=== PATIENT | male | born 1955 | race Caucasian/White ===

== ENCOUNTER 2019-01-24 05:58 | Inpatient (IN) ==
--- NOTE | 2019-01-10 08:49 | PAT Medication Instructions ---
Medication Instructions Date of Service January 10, 2019 Home Medications albuterol sulfate [ProAir HFA] 1 puff INHALATION Q6H PRN aspirin [Aspirin Low Dose] 81 mg PO QPM atorvastatin 20 mg PO PM carbamazepine 600 mg PO HS clonazepam 1 mg PO HS latanoprost [Xalatan] 1 drp OPHTHALMIC (EYE) PM meloxicam 15 mg PO QAM metformin 500 mg PO QDD metoprolol tartrate 50 mg PO BID metoprolol tartrate 100 mg PO QAM qvduqzea-tvx-irmgilb fumarate 1 tab PO QDD ASK your surgeon for instructions meloxicam 15 mg PO QAM DO NOT take the morning of surgery sxcewkya-iyq-oebapod fumarate 1 tab PO QDD Take morning of surgery With a small sip of water, OTHERWISE NOTHING TO EAT OR DRINK AFTER MIDNIGHT: albuterol sulfate [ProAir HFA] 1 puff INHALATION Q6H PRN (use if needed; please bring with you to hospital day of surgery if possible) metoprolol tartrate 100 mg PO QAM Take evening before surgery albuterol sulfate [ProAir HFA] 1 puff INHALATION Q6H PRN (if needed) aspirin [Aspirin Low Dose] 81 mg PO QPM atorvastatin 20 mg PO PM carbamazepine 600 mg PO HS clonazepam 1 mg PO HS latanoprost [Xalatan] 1 drp OPHTHALMIC (EYE) PM metformin 500 mg PO QDD metoprolol tartrate 50 mg PO BID llinqqvx-qkl-pqjnpti fumarate 1 tab PO QDD Other Notes If you have any questions please call us at [phone] or [phone] or [phone] or [phone]
--- NOTE | 2019-01-10 12:43 | Anesthesiology Consultation ---
Date of Service January 10, 2019 Assessment & Plan (1) Encounter for pre-operative examination: Hx CAD/stents x2, lost to cardiac followup; patient will have cardiac preop evaluation on 01/14 (ANA Clements); per clinical secretary note, ECHO/stress test being done 01/21/19. Awaiting reports/cardio optimization. Chart Review Chart Review: Patient seen in Pre Admission Testing Teaching & Discussion Pre-Anesthesia Teaching/Discussion Notes: Instructed NPO after midnight before surgery,except medications with 15 cc of water. Medication instructions provided according to the PAT guidelines. History Surgery Operation Date: 01/24/19 07:45 Proposed Procedures p L3-S1 Removal of Hardware, L1-L3 Decompression, T12-L4 Fusion, Spinal Cord Monitoring - Malik Griffin DO Height/Weight Height: 6 ft Weight: 98.3 kg Allergies Allergy/AdvReac Type Severity Reaction Status Date / Time ibuprofen Allergy Unknown Rash Verified 01/06/19 12:06 Medications Home Medications Medication Instructions Recorded Confirmed Last Taken albuterol sulfate [ProAir HFA] 1 puff INHALATION Q6H PRN 01/06/19 01/06/19 Unknown aspirin [Aspirin Low Dose] 81 mg PO QPM 01/06/19 01/06/19 Unknown atorvastatin 20 mg PO PM 01/06/19 01/06/19 Unknown carbamazepine 600 mg PO HS 01/06/19 01/06/19 Unknown clonazepam 1 mg PO HS 01/06/19 01/06/19 Unknown latanoprost [Xalatan] 1 drp OPHTHALMIC (EYE) PM 01/06/19 01/06/19 Unknown meloxicam 15 mg PO QAM 01/06/19 01/06/19 Unknown metformin 500 mg PO QDD 01/06/19 01/06/19 Unknown metoprolol tartrate 50 mg PO BID 01/06/19 01/06/19 Unknown metoprolol tartrate 100 mg PO QAM 01/06/19 01/06/19 Unknown qhlrhtcj-nmm-vzwrrpv fumarate 1 tab PO QDD 01/06/19 01/06/19 Unknown [Multi Vitamin] Past Medical History Medical History Borderline diabetes NIDDM CAD (coronary artery disease) 1994= STENTS X2 Chronic obstructive pulmonary disease STABLE Degenerative disc disease Glaucoma History of seizures NO SEIZURES X SEVERAL YEARS Hx of myocardial infarction 1994= STENTS X2 Hyperlipidemia Hypertension Spinal stenosis Exercise / Class Metabolic Activity II 4-5 Yardwork/Stairs/Walk up hill Past Surgical History Surgical History History of back surgery History of cardiac cath 1994= STENTS X2 Past Anesthesia History No Hx of Anesthesia Complications and No Family Hx of Anesthesia Complications History of PONV No Hx of PONV and Hx of Motion Sickness Social History Smoking Status: Current every day smoker tobacco type: cigars Smoking cigarettes per day: 5 Do You Dip or Chew Tobacco: No Hx Alcohol Use: No Hx Substance Use: No Review of Systems Patient reports LBP with hip/groin radiation. Patient denies chest pain, shortness of breath, cough, wheezing, palpitations. Physical Exam Vital Signs VITALS BP 163/74 P 57 TEMP 98.0 SP02 95%RA RESP 18 PHYSICAL Full neck and c-spine range of motion. Full TMJ range of motion. TMD 4 finger breaths Mallampati Score 2 Dentition: edentulous Lungs: clear throughout to auscultation Cardiac: regular rate and rhythm, no murmurs noted Spine: normal Carotid arteries: negative bruit Extremities: no edema Testing Electrocardiogram Date: 01/10/19 Findings: + SB @ (56) Chest X-Ray Date: 01/10/19 Findings: + NAD Stress Test Date: 09/03/12 Type: DSE Negative for ischemia at 66%MPHR. Nondiagnostic stress ECHO/EKG given not able to attain 85% MPHR. No symptoms. No ectopy. EF 60%. Mild RAD. No significant valvular disease. Laboratory Results 01/10/19 13:13 PT 10.6 Seconds (9.0-12.0) 01/10/19 13:13 INR 1.0 (0.9-1.1) 01/10/19 13:13 APTT 28.8 Seconds (21.0-31.0) 01/10/19 13:13 Yellow 01/10/19 Unknown Clear (Clear) 01/10/19 Unknown 7.0 (4.5-7.5) 01/10/19 Unknown Ur Specific Wever 1.014 (1.000-1.030) 01/10/19 Unknown Negative (Negative) 01/10/19 Unknown Negative (Negative) 01/10/19 Unknown Negative (Negative) 01/10/19 Unknown Negative (Negative) 01/10/19 Unknown Ur Leukocyte Esterase Negative (Negative) 01/10/19 Unknown 0 /hpf (0-5) 01/10/19 Unknown 5-10 /hpf (0-4) H 01/10/19 Unknown U Hyaline Cast (Auto) 0 /lpf (0-5) 01/10/19 Unknown U Epithel Cells (Auto) 0-5 /lpf (0-5) 01/10/19 Unknown Negative (Negative) 01/10/19 Unknown Blood Type O Positive 01/10/19 13:13 Antibody Screen NEGATIVE 01/10/19 13:13 01/03/19 SODIUM 134 POTASSIUM 4.7 CHLORIDE 98 CO2 29 BUN 13 CREATININE 0.8 GLUCOSE 99
--- NOTE | 2019-01-10 13:42 | XRay Report ---
XR chest Pre-admission PA/Lat CLINICAL HISTORY: pat preoperative evaluation COMPARISON STUDY: 08/25/2012 FINDINGS: The bones soft tissues and hemidiaphragms are normal. The cardiomediastinal silhouette is n ormal. The lungs are clear. The pulmonary vasculature is normal. IMPRESSION: Negative chest. The above report was generated using voice recognition software. It may contain grammatical, syntax or spelling errors. Electronically signed by: Spencer Russo M.D. 01/10/2019 1:40 PM
[2019-01-10 14:04] LABS: Basophils # (auto) 0.02 K/uL (0-0.2); Basophils % (auto) 0.3 %; Eosinophils # (auto) 0.07 K/uL (0-0.5); Hematocrit (blood only) 41.2 % (42-52); Hemoglobin 15.2 g/dL (14.0-18.0); Lymphocytes # (auto) 1.98 K/uL (1.2-3.4); Lymphocytes % (auto) 28.7 %; Mean Corpuscular Hgb Conc 36.9 g/dL (32-36); Mean Platelet Volume 9.1 fL (7.4-10.4); Monocytes % (auto) 10.2 %; Neutrophils # (auto) 4.12 K/uL (1.4-6.5); Neutrophils % (auto) 59.8 %; Platelet Count 222 K/uL (130-400); RDW Coefficient of Variation 12.2 % (11.5-14.5); RDW Standard Deviation 39.2 fL (36.4-46.3); Red Blood Count 4.63 M/uL (4.7-6.1); White Blood Count 6.89 K/uL (4.8-10.8)
[2019-01-10 14:19] LABS: Partial Thromboplastin Ratio 1.1; Partial Thromboplastin Time 28.8 Seconds (21.0-31.0); Prothrombin Time 10.6 Seconds (9.0-12.0)
[2019-01-10 14:31] LABS: Appearance Urine Clear (Clear); Bacteria Urine Automated Negative (Negative); Bilirubin Urine Negative (Negative); Blood Urine 1+ (Negative); Cast Urine Automated 0 /lpf (0-5); Color Urine Yellow; Epithelial Cell Urine Auto 0-5 /lpf (0-5); Glucose Urine UA Negative (Negative); Ketones Urine Negative (Negative); Leukocyte Esterase Urine Negative (Negative); Nitrite Urine Negative (Negative); Protein Urine Negative (Negative); Specific Gravity Urine 1.014 (1.000-1.030); Urobilinogen Urine Negative (Negative); WBC Urine Automated 0 /hpf (0-5)
[2019-01-24] MEDS ORDERED: GABAPENTIN 300 MG x 2 PO SCH (06:00)
[2019-01-24] MEDS ORDERED: CeleBREX 200 MG CAP PO SCH (06:00)
[2019-01-24] MEDS ORDERED: CEFAZOLIN 2000MG 2,000 MG/15 ML SYR IV SCH (06:00)
[2019-01-24] MEDS ORDERED: LR 15ML/HR IV SCH (06:00)
[2019-01-24] MEDS ORDERED: ACETAMINOPHEN 500 MG TAB PO SCH (06:00)
--- OUTSIDE RECORDS SUMMARY | 2019-01-24 06:02 | External Medical Summary | Continuity of Care Document ---
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 Refills: 0 Atorvastatin Calcium 20 MG Oral Tablet; TAKE 1 TABLET Bedtim e Refills: 0 Meloxicam 15 MG Oral Tablet; Take 1 tablet daily 30 Tablet Bottle Refills: 0 clonazePAM 1 MG Oral Tablet; TAKE 1 TABLET AT BEDTIME. DO Luann Mccord Start: 04-Mar-2016 Quantity: 30 Refills: 5 Multi For Him Oral Capsule Refills: 0 Aspirin 81 MG Oral Tablet Delayed Release; TAKE 1 TABLET JULIO LY. Refills: 0 ProAir HFA 108 (90 Base) MCG/ACT Inhalat ion Aerosol Solution; INHALE 1 PUFF EVERY 4 HOURS NEEDED. Refills: 0 metFORMIN HCl - 500 MG Oral Tablet; Take 1 tablet daily Refills: 0 carBAMazepine ER 200 MG Oral Tablet Exte nded Release 12 Hour; TAKE THREE TABLETS BY MOUTH AT BEDTIME DO Luann Brar Start: 07-Jul-2017 Quantity: 90 Refills: 11 Latanoprost 0.005 % Ophthalmic Solution; INSTILL 1 DROP IN BOTH EYES AT BEDTIME. Refills: 0 Procedures Comp Metabolic Panel Date: 05-Jan-2019 CBC With DIFF Date: 05-Jan-2019 History of Cath Stent Placement Status: Completed Cath Stent Placement Immunizations Immunizations not documented Family History Father Family history of Aneurysm (442.9) (I72.9) Status: Active Mother Family history of malignant neoplasm of stomach (V16.0) (Z80 .0) Status: Active Social History - Smoking Status Smoker. current status unknown Plan of Treatment Planned Encounters Appointment; Christal Emerson PA-C Start: 08-Jul-2019 14:00 Re quest Planned Observations Planned Goals not documented Results No Known Results Results not documented Vital Signs 05-Jan-2019 16:05 Systolic 147 mm[Hg] Comments: Location: LUE; Position: Sitting Diastolic 77 mm[Hg] Comments: Location: LUE; Position: Sitting Weight 222 lb Height 72 in BSA Calculated 2.23 m2 BMI Calculated 30.11 kg/m2 O2 Saturation 94 % Heart Rate 63 /min Encounters Appointment; Luann Barr DO 05-Jan-2019 16:00 Encounter Diagnosis: Problem not documented Appointment; Christal Emerson PA-C 08-Jul-2018 15:00 Encounter Diagnosis: Problem not documented Appointment; Luann Barr DO 06-Jan-2018 14:00 Encounter Diagnosis: Problem not documented Appointment; Luann Barr DO 07-Jul-2017 14:20 Encounter Diagnosis: Problem not documented Appointment; Christal Emerson PA-C 08-Jul-2019 14:00 Encounter Diagnosis: Problem not documented
[2019-01-24] MEDS ORDERED: fentaNYL citrate 100 MCG/2 ML VIAL ONE ×5 (06:37→10:51)
[2019-01-24] MEDS ORDERED: MIDAZOLAM HCL 1 MG/ML 2ML VIAL ONE (06:37)
[2019-01-24] MEDS ORDERED: LIDOCAINE HCL 2% 2 ML VIAL/AMP(20MG/ML) INFIL ONE (06:38)
[2019-01-24] MEDS ORDERED: NEOSTIGMINE METHYLSULFATE 1 MG/ML 10ML VIAL ONE (06:38)
[2019-01-24] MEDS ORDERED: HYDROmorphone INJ 2 MG/ML SYR/VIAL ONE ×2 (06:38→09:32)
[2019-01-24] MEDS ORDERED: ONDANSETRON INJ 2 MG/ML 2 ML VIAL ONE (06:38)
[2019-01-24] MEDS ORDERED: DEXAMETHASONE SOD INJ 4 MG/ML VIAL ONE (06:38)
[2019-01-24] MEDS ORDERED: GLYCOPYRROLATE 0.2 MG/ML VIAL ONE (06:38)
[2019-01-24] MEDS ORDERED: ROCURONIUM BROMIDE 10 MG/ML 5 ML VIAL ONE (06:38)
[2019-01-24] MEDS ORDERED: PROPOFOL IV EMULSION 10 MG/ML 20 ML VIAL IV ONE (06:38)
[2019-01-24] MEDS ORDERED: BUPIVACAINE/EPINEPHRINE 0.5% MPF 1:200,000 30 ML VIAL ONE (06:59)
[2019-01-24] MEDS ORDERED: BACITRACIN INJ 50,000 UNIT VIAL ONE (06:59)
[2019-01-24] MEDS ORDERED: ALBUTEROL 0.083% NEBU SOLN 3 ML VIAL NEB STA (07:11)
[2019-01-24] MEDS ORDERED: ALBUMIN HUMAN 5% 12.5 GM/250 ML VIAL IV ONE ×2 (07:19→09:32)
[2019-01-24] MEDS ORDERED: PROPOFOL IV EMULSION 10 MG/ML 100 ML VIAL IV ONE ×2 (07:19→09:32)
--- NOTE | 2019-01-24 07:22 | History & Physical Bridge Note ---
Date of Service January 24, 2019 History & Physical Bridge Note I have examined the patient, reviewed the History & Physical and in the interval since the performance of the History & Physical I have noted the following changes of clinical significance: no changes noted
--- NOTE | 2019-01-24 07:23 | History & Physical Report ---
Date of Service January 24, 2019 Assessment & Plan (1) Spinal stenosis, lumbar region with neurogenic claudication: Removal of hardware L3-S1 decompression L1-L3 fusion T12 the L4 Present on Admission?: Yes History of Present Illness Chief Complaint: Back and leg pain Primary Care Provider: Fly Lyons MD Presents with chronic persistent back and leg pain. After failing extensive course of nonoperative care is here for surgical intervention. Allergies Allergy/AdvReac Type Severity Reaction Status Date / Time ibuprofen Allergy Unknown Rash Verified 01/06/19 12:06 Home Medications Home Medications Medication Instructions Recorded Confirmed Type albuterol sulfate [ProAir HFA] 1 puff INHALATION Q6H PRN 01/06/19 01/24/19 History aspirin [Aspirin Low Dose] 81 mg PO QPM 01/06/19 01/24/19 History atorvastatin 20 mg PO PM 01/06/19 01/24/19 History carbamazepine 600 mg PO HS 01/06/19 01/24/19 History clonazepam 1 mg PO HS 01/06/19 01/24/19 History latanoprost [Xalatan] 1 drp OPHTHALMIC (EYE) PM 01/06/19 01/24/19 History meloxicam 15 mg PO QAM 01/06/19 01/24/19 History metformin 500 mg PO QDD 01/06/19 01/24/19 History metoprolol tartrate 50 mg PO BID 01/06/19 01/24/19 History metoprolol tartrate 100 mg PO QAM 01/06/19 01/24/19 History pfmffxes-mln-hesolfc fumarate 1 tab PO QDD 01/06/19 01/24/19 History [Multi Vitamin] Past Med/Surg History Medical History Borderline diabetes NIDDM CAD (coronary artery disease) 1994= STENTS X2 Chronic obstructive pulmonary disease STABLE Degenerative disc disease Glaucoma History of seizures NO SEIZURES X SEVERAL YEARS Hx of myocardial infarction 1994= STENTS X2 Hyperlipidemia Hypertension Spinal stenosis Surgical History History of back surgery History of cardiac cath 1994= STENTS X2 Social History Preferred Language: Tamazight Communication Ability: Effective Beliefs That Will Affect Care: None Current Living Situation: Alone Feels Safe at Home: Yes Safety Concerns: Feels Safe At This Time Smoking Status: Current every day smoker Tobacco Type: cigars Cigarettes Per D ay: 5 Do You Dip or Chew Tobacco: No Second Hand Exposure: No Hx Alcohol Use: No Hx Substance Use: No Physical Exam Vital Signs (Past 24 Hours): Last Vital Signs Temp 36.7 C 01/24/19 06:23 Pulse 157 H 01/24/19 06:23 Resp 20 01/24/19 06:23 BP 157/81 H 01/24/19 06:23 Pulse Ox 99 01/24/19 06:23 Physical Exam: Patient is alert and oriented neurologically intact.
[2019-01-24] MEDS ORDERED: LARYING-O-JET KIT (LTA) ONE (09:38)
[2019-01-24] MEDS ORDERED: ALBUTEROL HFA INHALER 8.5 GM ONE (10:13)
[2019-01-24] MEDS ORDERED: ePHEDrine sulfate 50 MG/ML AMP ONE (10:13)
[2019-01-24] MEDS ORDERED: ePHEDrine sulfate 50 MG/ML SYR ONE (10:13)
[2019-01-24] MEDS ORDERED: PHENYLEPHRINE 100MCG/ML 5ML SYR ONE (10:16)
[2019-01-24] MEDS ORDERED: FLOSEAL HEMOSTATIC MATRIX 10ML TOP ONE (10:17)
[2019-01-24] MEDS ORDERED: ePHEDrine sulfate 50 MG/ML AMP IV PRN (10:24)
[2019-01-24] MEDS ORDERED: ONDANSETRON INJ 2 MG/ML 2 ML VIAL IV PRN ×2 (10:24→12:42)
[2019-01-24] MEDS ORDERED: FLUMAZENIL 0.1 MG/1 ML 10 ML VIAL IV PRN (10:24)
[2019-01-24] MEDS ORDERED: LABETALOL HCL IV 5 MG/ML 20ML IV PRN (10:24)
[2019-01-24] MEDS ORDERED: HYDROmorphone INJ 1 MG/ML SYRINGE IV PRN (10:24)
[2019-01-24] MEDS ORDERED: ATROPINE SULFATE 0.1 MG/ML 10ML SYR IV PRN (10:24)
[2019-01-24] MEDS ORDERED: PROMETHAZINE HCL 12.5 MG in SODIUM CHLORIDE 0.9% 50 ML IV PRN ×2 (10:24→12:42)
[2019-01-24] MEDS ORDERED: NALOXONE HCL 0.4 MG/1 ML VIAL/CARP IV PRN (10:24)
[2019-01-24 10:28] LABS: Hematocrit (blood only) 32.9 % (42-52); Hemoglobin 12.1 g/dL (14.0-18.0)
--- NOTE | 2019-01-24 10:37 | Operative Report ---
Post Operative Report Pre & Post Diagnosis Operation Date: 01/24/19 07:45 Pre-Op Diagnosis: Spinal Stenosis, Lumbar Region with Neurogenic Claudication Post-Op Diagnosis: Spinal Stenosis, Lumbar Region with Neurogenic Claudication Procedure Operation Date: 01/24/19 07:45 Actual Procedures #1 removal of posterior segmental instrumentation L3-4 L4-5 L5-S1. #2 exploration of fusion L3-4 L4-5 L5-S1. #3 lumbar decompression bilateral medial facetectomies L1-L2 3. #4 posterior spinal fusion T12-L1 L1-L2 3 L3-4. #5 placement of posterior segmental instrumentation using globus T12-L4. #6 interbody fusion L2-3. #7 placement of peek cage 9 x 26 mm L2-3. #8 placement of locally harvested morselized autograft in the posterior lateral gutters. #9 placement infuse collagen sponge combined with master graft in the posterior lateral gutters and ostial amp in the interbody space. Surgeon Malik Griffin, Forestry Support Specialist Samreen Martins Estimated Blood Loss 1,000 Findings See Below Patient experienced significant blood loss secondary to multi-level bony debridement. This did at least 50% of time to the operative procedure secondary to visualization for decompression. Specimens None Indications This is a 63-year-old male well-known to the severe spinal stenosis and marked decline in ability to ambulate. Separately he like to undergo the above- mentioned procedure. Description of Procedure Patient was met with identified and informed consent obtained. He was then taken to the operative suite underwent intubation and placed in a prone position on the Umesh table on top of the Sergo frame. All bony prominences well- padded eyes inspected to ensure no external pressure placed upon. This point the cervical lumbar spine is prepped and draped in a normal sterile fashion. Sharp dissection with the assistance of Bovie cautery was performed down to and exposing the lamina and transverse processes of T12 L1-L2 and the instrumentation at L3-L4-L5 and S1 levels bilaterally. I then proceeded to remove the hardware bilaterally explore the fusion mass noting it to be intact. Then performed a complete laminotomy of L2 and L1 from a caudal cephalad fashion including medial facetectomies and foraminotomies bilaterally. This address severe spinal stenosis. At this complete pedicle screws were placed in T12 L1-L2-L3 and L4 bilaterally with assistance of fluoroscopy and appropriate size brea placed. By way of a transforaminal approach on the left complete discectomy of L2-3 was performed in plate graded to subcortical being bone and a 9 x 26 mm peek cage filled with osteo-amp bone graft tapped in position. Proper sized rods were then locked in position bilaterally. The transverse processes of T12 L1-L2 and L3 and L4 burred to subcortical bleeding bone. Infuse collagen sponge mass graft and local autograft was placed in the posterior lateral gutters. 15 round BRANDT drain inserted. Incision was then closed with 1 Vicryl in the fascia 2-0 Vicryl subcutaneous and 4 Monocryl for final skin closure. Steri-Strip sterile dressings placed. Patient awakened taken back to stable disc. Please note Samreen Martins present throughout the entire procedure involved the patient positioning complex portions of the surgery and final skin closure. Lastly spinal cord monitoring was utilized throughout the entire procedure and no changes noted. I attest to the content of the Intraoperative Record and any orders documented therein. Any exceptions are noted below.
[2019-01-24] MEDS ORDERED: CEFAZOLIN 250 MG/ML 1 GM VIAL ONE (10:45)
--- NOTE | 2019-01-24 10:52 | Fluoroscopy Report ---
FL lumbar spine 2-3V CLINICAL HISTORY: L3-S1 HARDWARE REMOVAL, T12-L4 DECOMP/FUSION COMPARISON STUDY: None FLUOROSCOPY TIME: 29 seconds NUMBER OF FLUOROSCOPIC IMAGES: 4 FINDINGS: Findings consistent with hardware removal from L3 through S1. Evidence for disc decompressi on and fusion from T12 through L4. Alignment is anatomic. IMPRESSION: Laminectomy and fusion T12-L4. The above report was generated using voice recognition software. It may contain grammatical, syntax or spelling errors. Electronically signed by: Spencer Russo M.D. 01/24/2019 10:50 AM
--- NOTE | 2019-01-24 11:55 | Anesthesiology Progress Note ---
Date of Service January 24, 2019 Anesthesia Post Procedure Vital Signs Vital Signs: Temp Pulse Pulse Resp BP Pulse Ox 01/24/19 11:45 63 12 123/65 100 01/24/19 11:35 80 13 115/56 L 100 01/24/19 11:25 82 12 123/62 100 01/24/19 11:15 36.5 C 65 13 111/68 100 01/24/19 11:05 36.5 C 72 12 126/59 L 100 01/24/19 07:35 50 L 14 92 01/24/19 06:23 36.7 C 55 L 20 157/81 H 99 Pain Intensity Medial Back: Pain Intensity: 0 Transfer of Care Handoff Completed per policy Notes Mental Status: alert / awake / arousable Patient Amnestic to Procedure: Yes Nausea / Vomiting: adequately controlled Pain: adequately controlled Airway Patency, RR, SpO2: stable & adequate BP & HR: stable & adequate Hydration State: stable & adequate Anesthetic Complications: no major complications apparent
[2019-01-24] MEDS ORDERED: SOD PHOSPHATE/SOD BIPHOSPHATE ENEMA 132 ML BTL PR PRN (12:42)
[2019-01-24] MEDS ORDERED: HYDROmorphone INJ 0.5 MG/0.5 ML SYR IV PRN (12:42)
[2019-01-24] MEDS ORDERED: METOCLOPRAMIDE HCL INJ 5 MG/ML 2 ML VIAL IV PRN (12:42)
[2019-01-24] MEDS ORDERED: ONDANSETRON 4 MG TAB PO PRN (12:42)
[2019-01-24] MEDS ORDERED: BISACODYL 10 MG SUPP PR PRN (12:42)
[2019-01-24] MEDS ORDERED: LORazepam 0.5 MG/1 ML VIAL IV PRN (12:42)
[2019-01-24] MEDS ORDERED: MAGNESIUM HYDROXIDE SUSP 30 ML UDC PO PRN (12:42)
[2019-01-24] MEDS ORDERED: ALBUTEROL HFA INHALER 8.5 GM INH PRN (12:42)
[2019-01-24] MEDS ORDERED: ACETAMINOPHEN 1,000 MG/100 ML VIAL IV PRN (12:42)
[2019-01-24] MEDS ORDERED: ALUMINUM/MAGNESIUM SUSP 30 ML UDC PO PRN (12:42)
[2019-01-24] MEDS ORDERED: ACETAMINOPHEN 500 MG TAB PO PRN (12:42)
[2019-01-24] MEDS ORDERED: DO NOT ADMINISTER FLU VACCINE PRN (12:42)
[2019-01-24] MEDS ORDERED: FAMOTIDINE 20 MG TAB PO PRN (12:42)
[2019-01-24] MEDS ORDERED: DO NOT ADMINISTER PNEUMOCOCCAL VACCINE PRN (12:42)
[2019-01-24] MEDS: LACTATED RINGER'S 1,000 ML IV SCH ×2 (13:26→20:05)
[2019-01-24] MEDS: KETOROLAC TROMETHAMINE 15 MG/ML VIAL IV SCH ×2 (13:26→20:07)
[2019-01-24] MEDS: CEFAZOLIN 2000MG 2,000 MG/15 ML SYR IV SCH ×2 (16:13→23:38)
[2019-01-24] MEDS: CEROVITE ADV FORMULA TAB PO SCH (16:14)
[2019-01-24] MEDS ORDERED: METOPROLOL TARTRATE 50 MG TAB PO SCH (17:00)
[2019-01-24] MEDS: METFORMIN HCL 500 MG TAB PO SCH (17:33)
[2019-01-24] MEDS: METOPROLOL TARTRATE 50 MG TAB PO SCH ×2 (17:33→21:20)
[2019-01-24] MEDS: ATORVASTATIN 20 MG TAB PO SCH (21:20)
[2019-01-24] MEDS: clonazePAM 1 MG TAB PO SCH (21:20)
[2019-01-24] MEDS: ASPIRIN 81 MG ECTAB PO SCH (21:20)
[2019-01-24] MEDS: DOCUSATE SODIUM/SENNA 50/8.6MG TAB PO SCH (21:21)
[2019-01-24] MEDS: CARBAMAZEPINE 200 MG TABCR PO SCH (21:21)
[2019-01-24] MEDS: LATANOPROST 0.005% OP SOLN 2.5 ML BTL OP SCH (21:22)
[2019-01-24] MEDS: OXYCODONE HCL IR 5 MG TAB (IMMEDIATE RELEASE) PO PRN (23:38)
[2019-01-25] MEDS: KETOROLAC TROMETHAMINE 15 MG/ML VIAL IV SCH ×2 (02:18→07:15)
[2019-01-25] MEDS: LACTATED RINGER'S 1,000 ML IV SCH (02:21)
[2019-01-25] MEDS: POLYETHYLENE (MIRALAX) 17 GM PACK PO SCH ×4 (05:29→23:30)
[2019-01-25 06:23] LABS: Basophils # (auto) 0.01 K/uL (0-0.2); Basophils % (auto) 0.1 %; Eosinophils # (auto) 0.02 K/uL (0-0.5); Eosinophils % (auto) 0.2 %; Hematocrit (blood only) 26.8 % (42-52); Hemoglobin 10.1 g/dL (14.0-18.0); Immature Granulocytes # (auto) 0.03 K/uL (0.00-0.02); Immature Granulocytes % (auto) 0.3 %; Lymphocytes # (auto) 2.12 K/uL (1.2-3.4); Lymphocytes % (auto) 23.9 %; Mean Corpuscular Hgb Conc 37.7 g/dL (32-36); Mean Corpuscular Volume 87.9 fL (80-100); Mean Platelet Volume 8.4 fL (7.4-10.4); Monocytes # (auto) 0.87 K/uL (0.11-0.59); Monocytes % (auto) 9.8 %; Neutrophils # (auto) 5.81 K/uL (1.4-6.5); Neutrophils % (auto) 65.7 %; Platelet Count 168 K/uL (130-400); RDW Coefficient of Variation 12.1 % (11.5-14.5); RDW Standard Deviation 38.5 fL (36.4-46.3); Red Blood Count 3.05 M/uL (4.7-6.1); White Blood Count 8.86 K/uL (4.8-10.8)
[2019-01-25 06:54] LABS: BUN Creatinine Ratio 11.5 (10-20); Calcium 7.9 mg/dl (8.5-10.1); Creatinine Clr Calc Pharmacy 121.2 ml/min; Est GFR (African American) 113.5; Est GFR (Non-African American) 97.9; Potassium 4.1 mmol/L (3.5-5.1)
[2019-01-25] MEDS: METOPROLOL TARTRATE 100 MG TAB PO SCH (07:15)
--- NOTE | 2019-01-25 08:33 | Anesthesiology Progress Note ---
Date of Service January 25, 2019 Anesthesia Post Procedure Vital Signs Vital Signs: Temp Pulse Pulse Pulse Pulse Resp BP 01/25/19 07:10 37.0 C 80 18 119/64 01/25/19 03:22 37.1 C 72 14 119/58 L 01/24/19 23:49 36.7 C 01/24/19 23:46 70 18 132/70 01/24/19 21:13 58 L 01/24/19 17:29 73 01/24/19 16:10 70 01/24/19 15:16 36.4 C L 59 L 18 01/24/19 14:34 64 18 01/24/19 13:23 76 18 01/24/19 12:50 62 18 01/24/19 12:20 36.4 C L 63 16 01/24/19 12:05 36.3 C L 58 L 12 01/24/19 11:55 65 12 01/24/19 11:45 63 12 01/24/19 11:35 80 13 01/24/19 11:25 82 12 01/24/19 11:15 36.5 C 65 13 01/24/19 11:05 36.5 C 72 12 BP Pulse Ox 01/25/19 07:10 96 01/25/19 03:22 95 01/24/19 23:49 01/24/19 23:46 99 01/24/19 21:13 125/65 01/24/19 17:29 143/72 H 01/24/19 16:10 125/60 01/24/19 15:16 152/78 H 98 01/24/19 14:34 138/77 96 01/24/19 13:23 143/76 H 96 01/24/19 12:50 110/57 L 18 L 01/24/19 12:20 120/66 93 01/24/19 12:05 121/56 L 94 01/24/19 11:55 122/60 95 01/24/19 11:45 123/65 100 01/24/19 11:35 115/56 L 100 01/24/19 11:25 123/62 100 01/24/19 11:15 111/68 100 01/24/19 11:05 126/59 L 100 Pain Intensity Medial Back: Pain Intensity: 4 Transfer of Care Handoff Completed per policy Notes Mental Status: alert / awake / arousable Patient Amnestic to Procedure: Yes Nausea / Vomiting: adequately controlled Pain: improving with treatment Airway Patency, RR, SpO2: stable & adequate BP & HR: stable & adequate Hydration State: stable & adequate Anesthetic Complications: no major complications apparent
[2019-01-25] MEDS: HYDROCODONE/ACETAMOPHEN 5/325MG TAB PO PRN ×2 (09:54→14:24)
--- NOTE | 2019-01-25 12:55 | Orthopedic Progress Note ---
Date of Service January 25, 2019 Assessment & Plan (1) Spinal stenosis, lumbar region with neurogenic claudication: Patient will continue physical therapy hopefully discharge home next few days. Present on Admission?: Yes Subjective Back pain is controlled leg symptoms markedly improved. Physical Exam Physical Exam: Patient is good strength testing appears comfortable. Results & Data Vital Signs (Past 12 Hours) Vital Signs Temp Pulse Resp BP Pulse Ox 01/25/19 12:06 36.7 C 51 L 16 108/57 L 97 01/25/19 11:05 95 01/25/19 07:10 37.0 C 80 18 119/64 96 01/25/19 03:22 37.1 C 72 14 119/58 L 95
[2019-01-25] MEDS: METFORMIN HCL 500 MG TAB PO SCH (15:51)
[2019-01-25] MEDS: CEROVITE ADV FORMULA TAB PO SCH (15:51)
[2019-01-25] MEDS: METOPROLOL TARTRATE 50 MG TAB PO SCH ×2 (15:52→20:13)
[2019-01-25] MEDS: ASPIRIN 81 MG ECTAB PO SCH (20:12)
[2019-01-25] MEDS: ATORVASTATIN 20 MG TAB PO SCH (20:12)
[2019-01-25] MEDS: clonazePAM 1 MG TAB PO SCH (20:12)
[2019-01-25] MEDS: CARBAMAZEPINE 200 MG TABCR PO SCH (20:13)
[2019-01-25] MEDS: DOCUSATE SODIUM/SENNA 50/8.6MG TAB PO SCH (20:13)
[2019-01-25] MEDS: LATANOPROST 0.005% OP SOLN 2.5 ML BTL OP SCH (20:13)
[2019-01-26] MEDS: POLYETHYLENE (MIRALAX) 17 GM PACK PO SCH ×4 (05:23→23:44)
[2019-01-26] MEDS: HYDROCODONE/ACETAMOPHEN 5/325MG TAB PO PRN ×3 (05:44→20:49)
[2019-01-26] MEDS: OXYCODONE HCL IR 5 MG TAB (IMMEDIATE RELEASE) PO PRN (07:24)
[2019-01-26] MEDS: METOPROLOL TARTRATE 100 MG TAB PO SCH (07:25)
[2019-01-26] MEDS: LORazepam 0.5 MG TAB PO PRN (10:46)
--- NOTE | 2019-01-26 13:52 | Orthopedic Progress Note ---
Date of Service January 26, 2019 Assessment & Plan (1) Spinal stenosis, lumbar region with neurogenic claudication: Patient is progressing appropriately. BRANDT drain decreasing nicely. Anticipate discharge home tomorrow. Present on Admission?: Yes Subjective Back pain is controlled leg symptoms improved. Physical Exam Physical Exam: Patient has good strength testing appears comfortable. Results & Data Vital Signs (Past 12 Hours) Vital Signs Temp Pulse Resp BP Pulse Ox 01/26/19 07:00 37.7 C H 74 18 124/69 95
[2019-01-26] MEDS: METFORMIN HCL 500 MG TAB PO SCH (15:39)
[2019-01-26] MEDS: CEROVITE ADV FORMULA TAB PO SCH (15:40)
[2019-01-26] MEDS: METOPROLOL TARTRATE 50 MG TAB PO SCH ×2 (15:40→20:38)
[2019-01-26] MEDS: DOCUSATE SODIUM/SENNA 50/8.6MG TAB PO SCH (20:38)
[2019-01-26] MEDS: ATORVASTATIN 20 MG TAB PO SCH (20:38)
[2019-01-26] MEDS: CARBAMAZEPINE 200 MG TABCR PO SCH (20:38)
[2019-01-26] MEDS: clonazePAM 1 MG TAB PO SCH (20:38)
[2019-01-26] MEDS: ASPIRIN 81 MG ECTAB PO SCH (20:38)
[2019-01-26] MEDS: LATANOPROST 0.005% OP SOLN 2.5 ML BTL OP SCH (20:39)
[2019-01-27] MEDS: POLYETHYLENE (MIRALAX) 17 GM PACK PO SCH ×2 (05:38→11:25)
[2019-01-27] MEDS: HYDROCODONE/ACETAMOPHEN 5/325MG TAB PO PRN (05:42)
[2019-01-27] MEDS: METOPROLOL TARTRATE 100 MG TAB PO SCH (07:09)
[2019-01-27] MEDS: LORazepam 0.5 MG TAB PO PRN (07:09)
[2019-01-27] MEDS: OXYCODONE HCL IR 5 MG TAB (IMMEDIATE RELEASE) PO PRN ×2 (09:57→13:38)
--- NOTE | 2019-01-27 16:00 | Discharge Summary ---
Date of Service January 27, 2019 Admission HPI Per Admitting Provider Presents with chronic persistent back and leg pain. After failing extensive course of nonoperative care is here for surgical intervention. Principal Diagnosis Lumbar spinal stenosis with neurogenic claudication Discharge Data Allergies Allergy/AdvReac Type Severity Reaction Status Date / Time ibuprofen Allergy Unknown Rash Verified 01/06/19 12:06 Consultations 01/24/19 12:42 Consult Case Management - Discharge Planning Routine Procedures Performed Operation Date: 01/24/19 07:45 Actual Procedures p L1-L3 Decompression, T12-L4 Fusion, Interbody Cage L2-L3, Spinal Cord Monitoring - Malik Griffin DO s L3-S1 Removal of Hardware - Malik Griffin DO Ordered Studies 01/24/19 07:45 FL fluoroscopy <1hr Routine FL lumbar spine 2-3V Routine Hospital Course (1) Spinal stenosis, lumbar region with neurogenic claudication: Patient underwent multilevel lumbar decompression and fusion tolerated this well was taken to the orthopedic floor postoperative. Postop day #1 he was up and ambulating. Leg symptoms improved. Progressed the postop day #2. BRANDT drain decreased appropriately. Subsequently discharged home on postop day #3. Discharge orders and instructions found in the chart for further review. Total Time Total Time Spent Total Time Spent (In Minutes): 20 minutes Discharge Plan Discharge Items Patient Disposition: Home - Self-Care Reason For Visit: Spinal Stenosis, Lumbar Region with Neurogenic Cla Discharge Diagnosis: lumbar stenosis Discharge Goals: Decrease discomfort Activity: Per 'Additional Instructions' section Non-emergency contact: Primary Care Provider Call non-emergency contact if: you have any medication questions Follow-up/Referrals: Fly Lyons MD [Primary Care Provider] - Diet: Regular Addtl Provider Instructions: ACTIVITY RECOMMENDATIONS: SELF CARE INSTRUCTIONS AFTER THORACIC/LUMBAR FUSIONS 1. You may walk to your tolerance. It is good exercise for your legs and back. Expect some back and intermittent leg aches and pains. 2. You may perform "counter-top" level activities (make a sandwich, alpesh with a project, etc.). 3. No bending or lifting of more than 10 pounds or back twisting of any nature (roll like a log when turning in bed). 4. You may ride in a car for 20-30 minutes at a time. No driving until after your first visit with your doctor. 5. Frequent changes of position and restricting sitting to 30 minutes at a time will help limit the amount of back spasms and stiffness you may experience. 6. You may discontinue the use of ambulatory aids (cane, crutches, etc.) once your strength and confidence allow. 7. You may primer charging tool setter the shower and let water strike your incision when you arrive home at least once daily. Do not take a tub bath, sit in a hot tub or go into a swimming pool until after your first recheck in the office. SPECIAL CARE INSTRUCTIONS: VERY IMPORTANT TO READ AND REVIEW A. Your surgical incision has been closed with a cosmetic suture under the skin that will dissolve in about 6 weeks. In 14 days, you can use a pair of clean scissors and cut the suture that is left outside of the skin at the ends of your incision. 1. The small skin tapes can be removed 7 days after surgery if they have not fallen off by that point. 2. You may keep the wound open to air as much as possible to promote healing after post-op day number 5 unless told otherwise by your doctor. 3. If you think the wound looks like it is becoming infected (redness or worsening drainage) and/or you are experiencing fever, chill or worsening back pain and muscle spasms, contact the office so that we may evaluate you as soon as possible. B. Complications are uncommon, but please contact us if you have any signs or symptoms of: 1. wound infection (fever higher than 102.5 degrees F, redness, separation of wound, drainage, or increasing pain from the incision) 2. blood clots in legs (pain, swelling, redness and warmth in legs) 3. urinary tract infection (fever higher than 102.5 degrees F, burning upon urination or increased frequency of urination) 4. nerve problems (inability to walk on your toes or heels, numbness, loss of bowel or bladder control) 5. any other symptoms that concern you C. Please call the office at if you have any concerns or questions about your operation or recovery. D. No smoking! Smoking drastically decreases the chance of a solid fusion. E. Do not take any anti-inflammatory medications (Indocin, Advil, Motrin, Aspirin, Naprosyn, etc.) as these may inhibit the chance of a solid fusion. Tylenol is okay to take for pain. MANAGING PAIN AFTER SPINAL SURGERY 1. Narcotic medication is intended for short-term use and will be provided for surgical pain. Surgical pain usually lasts for a period of 4-6 weeks. Narcotic medication includes Percocet, Vicodin, Darvocet, Tylenol #3 or Lortab. 2. Longer-term pain is more appropriately treated with non-narcotic medication such as Tylenol ES. 3. Muscle spasm is not appropriately treated with narcotics. Muscle relaxers such as Soma, Flexeril or Skelaxin can be used along with Tylenol ES. 4. Remember that we all live with some "aches and pains". This is not unusual or uncommon after an injury or as we get older. a. Back pain is expected and may include muscle spasms for 4 to 6 weeks after surgery. The pain should gradually improve. If the pain worsens for no apparent reason, please contact the office. b. Intermittent leg pain may also be experienced and should not be concerned about unless it worsens for no apparent reason. If so, please contact the office. 5. We will provide appropriate medication within the normal guidelines of their prescribed use. We will also be very cautious and aware of potential abuse and extended duration of patients' medication needs. a. Pain medications are for your comfort and to assist with sleep and rest so that the tissue can heal. They are not provided in order to return to normal activity and should not be used through the day. To do so or worsening pain at night can result from ongoing tissue damage and development of tolerance to the prescribed medicine. 6. Please allow 2-3 days to process refills. Prescriptions will not be mailed but must be picked up at the office. FOLLOW UP VISIT: Keep your scheduled follow-up appointment. Any questions, please call the office at . Prescriptions: New oxycodone 5 mg Tablet 5 mg PO Q4H PRN (Reason: Pain, Severe) Qty: 30 RF: 0 Continued latanoprost [Xalatan] 0.005 % Drops 1 drp OPHTHALMIC (EYE) PM RF: 0 metformin 500 mg Tablet 500 mg PO QDD RF: 0 atorvastatin 20 mg Tablet 20 mg PO PM RF: 0 meloxicam 15 mg Tablet 15 mg PO QAM RF: 0 clonazepam 1 mg Tablet 1 mg PO HS RF: 0 aspirin [Aspirin Low Dose] 81 mg Tablet,Delayed Release (Dr/Ec) 81 mg PO QPM RF: 0 carbamazepine 200 mg Tablet 600 mg PO HS RF: 0 metoprolol tartrate 50 mg Tablet 100 mg PO QAM RF: 0 metoprolol tartrate 50 mg Tablet 50 mg PO BID RF: 0 albuterol sulfate [ProAir HFA] 90 mcg/actuation Hfa Aerosol Inhaler 1 puff INHALATION Q6H PRN (Reason: Shortness Of Breath) RF: 0 Multi Vitamin 9 mg iron/15 mL Liquid 1 tab PO QDD RF: 0 carbamazepine 200 mg tablet extended release 12 hr 600 mg PO HS RF: 0 Stand-Alone Forms: [facility], [facility] Discharge Orders: Discharge Order (Routine); Ordered 01/27/19 Ordered By: Malik Griffin Admission Data Admit Date/Time: 01/24/19 10:42 Attending Provider: Malik Griffin Admit Provider: Malik Griffin Primary Care Provider: Fly Lyons Service: Surgical Services Other Interventions: Discharge Summary Assessment (RN) Last Done: 01/27/19 12:20 DC Date/Time DO NOT enter until pt leaves facility: 01/27/19 13:49
== END 2019-01-27 13:49 | disposition home or self-care (01) | DRG 455 ==
LOC: ASU 05:58 → 3E 10:42